=== PATIENT | male | born 1960 | race Caucasian/White ===

== ENCOUNTER 2020-11-08 08:44 | Outpatient (CLI) | payer OTHER, SELFPAY ==
--- NOTE | 2020-11-08 08:55 | FL_ITS ---
WS: [id number] MODIFIED BARIUM SWALLOW TECHNIQUE: Modified barium swallow with speech therapy using multiple consistencies. FLUOROSCOPY TIME: 1.3 minutes. CLINICAL INFORMATION: Other dysphagia COMPARISON: None. FINDINGS: Multiple consistencies utilized. Exam performed in bulging. Early spillage with pooling the vallecula . Active aspiration with no cough reflex visualized with thin liquids and nectar consistencies. FL/FL barium swallow modifd 20802 IMPRESSION: Silent aspiration visualized with thin liquids and nectar consistencies.
== END 2020-11-08 08:45 | disposition home or self-care (01) ==
LOC: RAD 08:48
PROVIDERS: Visit Provider Internal Medicine
DX: R13.10 Dysphagia, unspecified (principal)
CPT/HCPCS: 74230; 92611